=== PATIENT | female | born 1985 | race Two or more races ===

== ENCOUNTER 2022-04-23 22:37 | Emergency (ER) | END 2022-04-24 00:43 | disposition home or self-care (01) | LOC: JD.ED 22:37 | DX: M25.562 Pain in left knee (principal) | CPT/HCPCS: 93971-26-LT; 93971-LT; 99283 ==

== ENCOUNTER 2024-07-06 01:07 | Emergency (ER) | payer BC | END 2024-07-06 02:51 | disposition home or self-care (01) | LOC: JD.ED 01:07 | DX: O99.612 Diseases of the digestive system complicating pregnancy, second trimester (principal); K59.09 Other constipation; Z88.5 Allergy status to narcotic agent; Z79.82 Long term (current) use of aspirin; Z79.4 Long term (current) use of insulin; Z79.899 Other long term (current) drug therapy; Z3A.24 24 weeks gestation of pregnancy | CPT/HCPCS: 99283 ==